=== PATIENT | female | born 1990 | race African-American/Black ===

== ENCOUNTER 2017-01-12 10:40 | Emergency (ER) | payer BC ==
[~2017-01-12] VITALS: Ht 162.6 cm; Wt 69.4 kg
[2017-01-12] MEDS ORDERED: ONDANSETRON 4MG/2ML VIAL (J2405) IV ONE (13:00)
[2017-01-12] MEDS ORDERED: KETOROLAC 30 MG/ML VIAL (J1885) IV ONE (13:00)
[2017-01-12 13:48] LABS: BASO % 0.1 % (0.0-1.0); EOS % 0.3 % (0.0-3.0); LARGE UNSTAINED CELL # 0.1 K/mm3 (0.0-0.4); LARGE UNSTAINED CELL % 0.6 % (0.0-4.0); LYMPH # 1.3 K/mm3 (1.5-6.5); LYMPH % 9.7 % (24.0-44.0); MEAN CORPUSCULAR HEMOGLOBIN 31.6 pg (27.0-33.0); MEAN CORPUSCULAR HGB CONC 33.1 g/dl (32.0-36.5); MEAN CORPUSCULAR VOLUME 95.5 fl (80.0-96.0); MONO # 0.4 K/mm3 (0.0-0.8); MONO % 3.1 % (0.0-5.0); NEUTROPHILS # 10.9 K/mm3 (1.8-7.7); NEUTROPHILS % 86.2 % (36.0-66.0); PLATELET COUNT, AUTOMATED 220 k/mm3 (150-450); WHITE BLOOD COUNT 12.6 K/mm3 (4.0-10.0)
[2017-01-12 14:01] LABS: YEAST LIKE CELL URINE AUTO SMALL
[2017-01-12 14:16] LABS: ANION GAP 7 MEQ/L (8-16); BLOOD UREA NITROGEN 11 MG/DL (7-18); CALCIUM LEVEL 9.7 MG/DL (8.5-10.1); CARBON DIOXIDE LEVEL 27 MEQ/L (21-32); CHLORIDE LEVEL 107 MEQ/L (98-107); CREATININE FOR GFR 0.79 MG/DL (0.55-1.02); GLOMERULAR FILTRATION RATE > 60.0 (>60); GLUCOSE, FASTING 108 MG/DL (70-105); POTASSIUM SERUM 3.7 MEQ/L (3.5-5.1); SODIUM LEVEL 141 MEQ/L (136-145)
--- NOTE | 2017-01-12 14:23 | REP ---
CT ABDOMEN AND PELVIS WITHOUT IV OR ORAL CONTRAST: RENAL STONE PROTOCOL HISTORY: Left lower quadrant pain. Question stone versus ovarian cyst. No comparison study. CT FINDINGS: Preliminary digital quarter section ironer radiograph demonstrates an unremarkable bowel gas pattern. The lung bases are clear. The liver and the spleen are normal in size homogeneous in texture. No adrenal lesion is appreciated. The gallbladder and the pancreas are unremarkable. There is a 2 mm intrarenal calculus in the right kidney upper pole. There is a 3 mm calculus in the region of the renal pelvis on the left. There is mild left-sided hydronephrosis. A mid ureteral calculus is seen at the level of the upper portion of the L4 vertebral body. This measures 5 mm in greatest diameter. The distal ureter is difficult to follow due to the paucity of intra-abdominal and pelvic fat. No uterine or ovarian abnormality is seen. The urinary bladder is largely empty. No free air is seen. Small and large bowel loops are unremarkable. There appears to be a small cyst in the right ovary 2.2 cm in diameter consistent with a follicle cyst. IMPRESSION: 1. Bilateral intrarenal nephrolithiasis. 2. Mild left-sided hydronephrosis. Suspect left mid ureteral calculus at the L4 vertebral body, 5 mm in diameter. 3. 2.2 cm follicle cyst right ovary. Signed by Eliu Cole MD 01/12/2017 02:50 P
[2017-01-12 14:24] VITALS: BP 120/63
[2017-01-12] MEDS ORDERED: FLOM5CAP PO (14:27)
[2017-01-12] MEDS ORDERED: ZOFR4TAB3 PO (14:27)
[2017-01-12] MEDS ORDERED: NAPR500T PO (14:27)
[2017-01-12] MEDS ORDERED: NORCOTAB PO (14:27)
== END 2017-01-12 14:44 | disposition home or self-care (01) ==
LOC: M ED 10:40
DX: N83.01 Follicular cyst of right ovary (principal); N20.1 Calculus of ureter
CPT/HCPCS: 74176; 80048; 81001; 81025; 85025; 96374; 96375; 99283; J1885; J2405

== ENCOUNTER → 2017-11-13 | Outpatient (REF) | payer OTHER | LOC: M SFHCLERA 12:10 | DX: J02.9 Acute pharyngitis, unspecified (principal) ==